=== PATIENT | female | born 1950 | race Caucasian/White ===

== ENCOUNTER 2017-07-15 12:20 | Emergency (ER) | payer MEDICARE, MEDICAID ==
[~2017-07-15] VITALS: Ht 170.2 cm; Wt 95.5 kg
[~2017-07-15 12:20] MED LIST: LEVO100T PO; SYN0.112T PO
[2017-07-15] MEDS ORDERED: normal saline 1000ML IV soln IVB ONE (12:45)
[2017-07-15] MEDS ORDERED: ipratropium/albuterol 3ml nebule NEB ONE (12:45)
[2017-07-15] MEDS ORDERED: methylPREDNISolone sod succ 125mg/2ml vial IV ONE (12:45)
[2017-07-15 13:01] LABS: BASOPHILS % (AUTO) 0.3 % (0-1); EOSINOPHILS # (AUTO) 0.1 X10'3 (0-0.9); HEMATOCRIT 25.2 % (35.0-45.0); HEMOGLOBIN 8.5 g/dl (12.0-16.0); LYMPHOCYTES # (AUTO) 0.9 X10'3 (1.1-4.8); LYMPHOCYTES % (AUTO) 16.6 % (21-51); MEAN CORPUSCULAR HEMOGLOBIN 29.4 PG (27.0-31.0); MEAN CORPUSCULAR HGB CONC 33.8 % (33.0-36.5); MEAN CORPUSCULAR VOLUME 86.8 FL (78-98); MONOCYTES # (AUTO) 0.4 X10'3 (0-0.9); MONOCYTES % (AUTO) 7.8 % (2-12); NEUTROPHILS # (AUTO) 3.8 X10'3 (1.8-7.7); NEUTROPHILS % (AUTO) 73.3 % (42-75); PLATELET COUNT 234 X10'3 (140-440); RED CELL DISTRIBUTION WIDTH 13.5 % (11.5-14.5); WHITE BLOOD COUNT 5.2 X10'3 (4.5-11.0)
[2017-07-15 13:10] VITALS: BP 141/105
[2017-07-15 13:38] LABS: ALANINE AMINOTRANSFERASE 25 U/L (12-78); ALBUMIN 2.9 G/DL (3.4-5.0); ALBUMIN/GLOBULIN RATIO 0.8 (1.1-1.5); ALKALINE PHOSPHATASE 103 IU/L (46-116); ANION GAP 8 (8-16); ASPARTATE AMINO TRANSFERASE 16 U/L (10-37); BILIRUBIN,TOTAL 0.4 MG/DL (0.1-1.0); BLOOD UREA NITROGEN 16 MG/DL (7-18); BUN/CREATININE RATIO 25.4 (6.6-38.0); CHLORIDE 110 MMOL/L (99-107); CREATININE 0.63 MG/DL (0.40-0.90); GLUCOSE 94 MG/DL (70-104); POTASSIUM 3.7 MMOL/L (3.5-5.1); SODIUM 142 MMOL/L (135-145); TOTAL CARBON DIOXIDE 24.5 MMOL/L (24-32); TOTAL PROTEIN 6.4 G/DL (6.4-8.2); eGFR > 90 ML/MIN
[2017-07-15] MEDS ORDERED: LEVO500T89 PO (13:49)
[2017-07-15] MEDS ORDERED: PRED20TA PO (13:49)
[2017-07-15] MEDS ORDERED: ALBU6.7H INH (13:49)
== END 2017-07-15 14:13 | disposition home or self-care (01) ==
LOC: ER 12:20
DX: J21.9 Acute bronchiolitis, unspecified (principal); J45.901 Unspecified asthma with (acute) exacerbation; F41.9 Anxiety disorder, unspecified; R62.50 Unspecified lack of expected normal physiological development in childhood; Z88.0 Allergy status to penicillin; Z88.1 Allergy status to other antibiotic agents; Z88.2 Allergy status to sulfonamides; Z88.8 Allergy status to other drugs, medicaments and biological substances; Z79.899 Other long term (current) drug therapy
CPT/HCPCS: 36415; 71045; 80053; 85025; 93005; 94640; 94760; 96374; 99285; J2930; J7030; 96361

== ENCOUNTER 2022-06-19 14:08 | Inpatient (IN) | payer MEDICARE, MEDICAID ==
[~2022-06-19] VITALS: Ht 175.3 cm; Wt 100.3 kg
[~2022-06-19 14:08] MED LIST changes: +ALBU6.7H14 INH
[2022-06-19 14:48] LABS: HEMOGLOBIN 12.1 g/dl (12.0-16.0); LYMPHOCYTES # (AUTO) 0.9 X10'3 (1.1-4.8); MONOCYTES # (AUTO) 0.7 X10'3 (0-0.9); NEUTROPHILS # (AUTO) 7.5 X10'3 (1.8-7.7); WHITE BLOOD COUNT 9.2 X10'3 (4.5-11.0)
[2022-06-19 14:50] LABS: BASOPHILS % (AUTO) 0.5 % (0-1); EOSINOPHILS % (AUTO) 0.2 % (0-6); HEMATOCRIT 36.6 % (35.0-45.0); LYMPHOCYTES % (AUTO) 10.3 % (21-51); MEAN CORPUSCULAR HEMOGLOBIN 30.2 PG (27.0-31.0); MEAN CORPUSCULAR HGB CONC 33.1 g/dL (33.0-36.5); MEAN CORPUSCULAR VOLUME 91.3 FL (78-98); MEAN PLATELET VOLUME 8.3 FL (7.4-10.4); MONOCYTES % (AUTO) 7.8 % (2-12); NEUTROPHILS % (AUTO) 81.2 % (42-75); PLATELET COUNT 237 X10'3 (140-440); RED BLOOD COUNT 4.01 X10'6 (4.20-5.60)
[2022-06-19 15:04] LABS: ALANINE AMINOTRANSFERASE 93 U/L (12-78); ALBUMIN 3.4 G/DL (3.4-5.0); ALKALINE PHOSPHATASE 136 IU/L (46-116); ANION GAP 9 (8-16); ASPARTATE AMINO TRANSFERASE 45 U/L (10-37); BILIRUBIN,TOTAL 1.2 MG/DL (0.1-1.0); BLOOD UREA NITROGEN 23 MG/DL (7-18); BUN/CREATININE RATIO 21.3 (10.0-20.0); CALCIUM 9.2 MG/DL (8.5-10.1); CHLORIDE 105 MMOL/L (99-107); CREATININE 1.08 MG/DL (0.40-0.90); GLUCOSE 193 MG/DL (70-104); POTASSIUM 4.4 MMOL/L (3.5-5.1); SODIUM 138 MMOL/L (135-145); TOTAL CARBON DIOXIDE 24.2 MMOL/L (24-32); TOTAL PROTEIN 6.8 G/DL (6.4-8.2); eGFR 50 ML/MIN
[2022-06-19 15:12] LABS: MAGNESIUM 2.3 MG/DL (1.5-2.4)
[2022-06-19] MEDS ORDERED: potassium Cl 20 mEq SR tablet PO PRN ×2 (16:55)
[2022-06-19] MEDS ORDERED: potassium Cl 40MEQ/1/2NS 520ml 520 ML IV PRN (16:55)
[2022-06-19] MEDS ORDERED: magnesium hydroxide 30ml (MOM) UD suspension PO PRN (16:55)
[2022-06-19] MEDS ORDERED: diphenhydrAMINE 25mg capsule PO PRN (16:55)
[2022-06-19] MEDS ORDERED: magnesium Cl slow-release 64mg tablet PO PRN (16:55)
[2022-06-19] MEDS ORDERED: morphine 2 MG/ML inj. syringe IV PRN (16:55)
[2022-06-19] MEDS ORDERED: ondansetron/PF 4mg/2ml inj IV PRN (16:55)
[2022-06-19] MEDS ORDERED: magnesium 4gm in 100ml NS 100 ML IV PRN (16:55)
[2022-06-19] MEDS ORDERED: hydrALAZINE 20mg/ml inj. IV PRN (17:15)
[2022-06-19] MEDS ORDERED: LEVO100T PO (17:47)
[2022-06-19] MEDS ORDERED: OFLO5DRO6 EACHEYE (17:47)
[2022-06-19] MEDS ORDERED: TETR-59 PO (17:48)
[2022-06-19] MEDS ORDERED: TETR15DR26 OP (17:49)
[2022-06-19] MEDS: K and/or MAG REPLACEMENT MC SCH (20:00)
[2022-06-19] MEDS ORDERED: enoxaparin 40mg/0.4ml syringe SQ SCH (20:00)
[2022-06-19] MEDS: docusate sod 100mg capsule PO SCH (20:43)
[2022-06-19] MEDS: HYDROcodone/acetaminophen 5mg/325mg tablet PO PRN (22:27)
--- NOTE | 2022-06-20 01:56 | NUR ---
PT. PLACED ON HOSPITAL BED FOR COMFORT. STATED RELIEF OF EPIGASTRIC PAIN AFTER BEING MEDICATED ORDERED WITH NORCO.
[2022-06-20 07:25] LABS: BASOPHILS # (AUTO) 0.1 X10'3 (0-0.2); BASOPHILS % (AUTO) 0.8 % (0-1); EOSINOPHILS # (AUTO) 0.1 X10'3 (0-0.9); EOSINOPHILS % (AUTO) 1.9 % (0-6); HEMATOCRIT 35.2 % (35.0-45.0); HEMOGLOBIN 11.6 g/dl (12.0-16.0); LYMPHOCYTES # (AUTO) 1.3 X10'3 (1.1-4.8); LYMPHOCYTES % (AUTO) 16.9 % (21-51); MEAN CORPUSCULAR HEMOGLOBIN 30.4 PG (27.0-31.0); MEAN CORPUSCULAR HGB CONC 32.9 g/dL (33.0-36.5); MEAN CORPUSCULAR VOLUME 92.3 FL (78-98); MEAN PLATELET VOLUME 8.5 FL (7.4-10.4); MONOCYTES # (AUTO) 0.6 X10'3 (0-0.9); MONOCYTES % (AUTO) 7.8 % (2-12); NEUTROPHILS # (AUTO) 5.6 X10'3 (1.8-7.7); NEUTROPHILS % (AUTO) 72.6 % (42-75); PLATELET COUNT 232 X10'3 (140-440); RED BLOOD COUNT 3.81 X10'6 (4.20-5.60); RED CELL DISTRIBUTION WIDTH 14.7 % (11.5-14.5); WHITE BLOOD COUNT 7.7 X10'3 (4.5-11.0)
[2022-06-20] MEDS: pantoprazole 40mg Tablet.DR PO SCH (07:30)
[2022-06-20 07:41] LABS: ALANINE AMINOTRANSFERASE 72 U/L (12-78); ALBUMIN 3.1 G/DL (3.4-5.0); ALBUMIN/GLOBULIN RATIO 0.9 (1.1-1.5); ALKALINE PHOSPHATASE 131 IU/L (46-116); ANION GAP 10 (8-16); ASPARTATE AMINO TRANSFERASE 37 U/L (10-37); BILIRUBIN,TOTAL 1.2 MG/DL (0.1-1.0); BLOOD UREA NITROGEN 28 MG/DL (7-18); BUN/CREATININE RATIO 24.1 (10.0-20.0); CALCIUM 9.1 MG/DL (8.5-10.1); CHLORIDE 108 MMOL/L (99-107); CREATININE 1.16 MG/DL (0.40-0.90); GLUCOSE 149 MG/DL (70-104); MAGNESIUM 2.3 MG/DL (1.5-2.4); SODIUM 140 MMOL/L (135-145); TOTAL CARBON DIOXIDE 22.3 MMOL/L (24-32); TOTAL PROTEIN 6.4 G/DL (6.4-8.2); eGFR 46 ML/MIN
[2022-06-20 07:45] LABS: POTASSIUM 4.5 MMOL/L (3.5-5.1)
[2022-06-20] MEDS: docusate sod 100mg capsule PO SCH ×2 (08:00→19:57)
[2022-06-20] MEDS: K and/or MAG REPLACEMENT MC SCH ×2 (08:00→19:57)
[2022-06-20] MEDS ORDERED: enoxaparin 40mg/0.4ml syringe SUBCUT SCH (08:00)
[2022-06-20 10:00] VITALS: BP 148/49
--- NOTE | 2022-06-20 10:00 | NUR ---
Patient in room PCU 3014. I have received report from Ted [facility]Z ED Dept and had the opportunity to ask questions and assume patient care. Pt alert and oriented x 4, breathing even and unlabored on room air. Denies chest pain. Reports weakness with walking with cane since about the June 07 with dizziness. Addendum: 06/20/22 at 1027 by Ian Babcock LVN Amended: Links added.
[2022-06-20 11:00] VITALS: BP 145/52
--- NOTE | 2022-06-20 12:18 | NUR ---
Paged. Page Sent promotional table spacer PAGER ID: [phone] MESSAGE: [id number]- [place]. Pt changed mind and would like to proceed with pacemaker procedure. Ian Babcock LVN
--- NOTE | 2022-06-20 12:21 | NUR ---
Jessica Urban. [id number]- [place]. Pt changed mind and would like to proceed with pacemaker procedure. Xenia notified. Dr. Bliss met with pt and initially refused procedure. Ian Babcock LVN
--- NOTE | 2022-06-20 14:40 | NUR ---
2 Blankets 1 sheet Addendum: 06/20/22 at 1456 by Ian Babcock LVN Amended: Links added.
--- NOTE | 2022-06-20 17:24 | NUR ---
BOTTLER HELPER documentation: I have reviewed and agree with all interventions, assessments performed and documented by MARK CORONADO LVN.
[2022-06-20 18:00] VITALS: BP 167/69
--- NOTE | 2022-06-20 18:05 | NUR ---
Patient in room PCU 3014. I have received report from Ian KHOURY and had the opportunity to ask questions and assume patient care.
--- NOTE | 2022-06-20 18:58 | NUR ---
Problems reprioritized. Patient report given, questions answered & plan of care reviewed with Lilian KHOURY. Addendum: 06/20/22 at 1859 by Ian Babcock LVN Amended: Links added.
[2022-06-20] MEDS: apixaban 5mg tablet PO SCH (20:00)
[2022-06-20] MEDS: mag hydrox/Alum hydrox/simeth 30ml oral suspension PO PRN (21:55)
--- NOTE | 2022-06-20 21:55 | NUR ---
pt c/o epigastric pain after drinking milk and said it was from her ulcer. offered pt Maalox, tylenol, or norco per EMar. pt eventually agreed to take Maalox.
[2022-06-20 22:00] VITALS: BP 164/47
--- NOTE | 2022-06-20 23:30 | NUR ---
pt still c/o epicgastric pain and has been very verbally disruptive in her room. charge nurse offered tylenol or norco. also offered to call doctor to see if we could give protonix which was non-admined earlier in the day. pt refused everything and requested we "get out" of her room.
--- NOTE | 2022-06-20 23:56 | NUR ---
pt was loudly moaning, went in to again offer pain medication or to call the doctor about protonix. pt said to "get out of my room". i reminded the pt that we are trying to help and that she is being loud and she has a neighbor who also does not feel well and is trying to sleep. pt again told me to get out and then wouldnt say anymore. charge nurse went in and pt then asked for one tylenol.
[2022-06-21] VITALS (19 sets, daily range): BP systolic 128–208; BP diastolic 48–90
--- NOTE | 2022-06-21 06:19 | NUR ---
Problems reprioritized. Patient report given, questions answered & plan of care reviewed with Ian KHOURY.
--- NOTE | 2022-06-21 06:30 | NUR ---
Patient in room PCU 3014. I have received report from Lilian KHOURY and had the opportunity to ask questions and assume patient care. Pt sleeping right side lying, eyes closed, breathing even and unlabored on room air. Call light within reach. Bed in Lowest position.
[2022-06-21] MEDS: pantoprazole 40mg Tablet.DR PO SCH (06:43)
--- NOTE | 2022-06-21 07:05 | NUR ---
Paged. Page Sent PAGER ID: [phone] MESSAGE: [phone]- [place]. Jessica Michaels. Can you please review med rec. Pt has AM sythroid due. Thanks. Ian Babcock LVN
[2022-06-21] MEDS: docusate sod 100mg capsule PO SCH ×2 (08:00→19:55)
[2022-06-21] MEDS: K and/or MAG REPLACEMENT MC SCH ×2 (08:00→19:58)
[2022-06-21] MEDS: apixaban 5mg tablet PO SCH (08:00)
[2022-06-21 08:17] LABS: BASOPHILS # (AUTO) 0.1 X10'3 (0-0.2); BASOPHILS % (AUTO) 0.7 % (0-1); EOSINOPHILS # (AUTO) 0.2 X10'3 (0-0.9); EOSINOPHILS % (AUTO) 2.6 % (0-6); HEMATOCRIT 34.5 % (35.0-45.0); HEMOGLOBIN 11.3 g/dl (12.0-16.0); LYMPHOCYTES # (AUTO) 1.3 X10'3 (1.1-4.8); LYMPHOCYTES % (AUTO) 16.1 % (21-51); MEAN CORPUSCULAR HEMOGLOBIN 30.2 PG (27.0-31.0); MEAN CORPUSCULAR HGB CONC 32.8 g/dL (33.0-36.5); MEAN CORPUSCULAR VOLUME 92.1 FL (78-98); MEAN PLATELET VOLUME 8.7 FL (7.4-10.4); MONOCYTES # (AUTO) 0.6 X10'3 (0-0.9); MONOCYTES % (AUTO) 7.3 % (2-12); NEUTROPHILS % (AUTO) 73.3 % (42-75); PLATELET COUNT 231 X10'3 (140-440); RED BLOOD COUNT 3.75 X10'6 (4.20-5.60); RED CELL DISTRIBUTION WIDTH 14.1 % (11.5-14.5); WHITE BLOOD COUNT 8.2 X10'3 (4.5-11.0)
[2022-06-21 08:32] LABS: ALANINE AMINOTRANSFERASE 73 U/L (12-78); ALKALINE PHOSPHATASE 136 IU/L (46-116); ANION GAP 10 (8-16); ASPARTATE AMINO TRANSFERASE 39 U/L (10-37); BLOOD UREA NITROGEN 30 MG/DL (7-18); BUN/CREATININE RATIO 28.8 (10.0-20.0); CALCIUM 8.7 MG/DL (8.5-10.1); CHLORIDE 107 MMOL/L (99-107); CREATININE 1.04 MG/DL (0.40-0.90); GLUCOSE 126 MG/DL (70-104); MAGNESIUM 2.3 MG/DL (1.5-2.4); SODIUM 140 MMOL/L (135-145); TOTAL CARBON DIOXIDE 23.2 MMOL/L (24-32); TOTAL PROTEIN 6.1 G/DL (6.4-8.2); eGFR 52 ML/MIN
[2022-06-21] MEDS ORDERED: SYNTHROID 100 MCG PO ONE ×2 (09:20→09:30)
[2022-06-21] MEDS ORDERED: glycopyrrolate 0.2mg/ml inj IV ONE (13:00)
[2022-06-21] MEDS ORDERED: MIDAZolam 1mg/ml 10ml vial IV ONE (13:15)
[2022-06-21] MEDS ORDERED: fentaNYL/PF 50MCG/1 ML 2ML syringe IV ONE (13:15)
--- NOTE | 2022-06-21 15:03 | NUR ---
RT Paged [phone]- Cardioversion procedure occuring at 1500. Please come to bedside. Ian Babcock LVN
--- NOTE | 2022-06-21 15:05 | NUR ---
RT paged [phone]- Dr. Villagomez at bedside. Please come for cardioversion procedure. Ian Babcock LVN
[2022-06-21] MEDS: amiodarone 200mg tablet PO SCH (15:25)
[2022-06-21] MEDS ORDERED: amiodarone 150mg/dext, iso-os 100 ML IV ONE ×2 (15:25)
--- NOTE | 2022-06-21 18:15 | NUR ---
Patient in room PCU 3014. I have received report from Ian KHOURY and had the opportunity to ask questions and assume patient care.
--- NOTE | 2022-06-21 18:26 | NUR ---
Pt had a Cardioversion today. Please see MD notes. Pt will have pacemaker procedure 06/22/22. Problems reprioritized. Patient report given, questions answered & plan of care reviewed with Lilian KHOURY.
[2022-06-21] MEDS: enoxaparin 100mg/ml syringe SUBCUT SCH (19:57)
--- NOTE | 2022-06-21 20:00 | NUR ---
did non admin for lovenox at 1999 since pt is going into surgery next day for pacemaker placement
[2022-06-21] MEDS: PEG EACHEYE SCH (21:00)
[2022-06-21] MEDS: PVP EACHEYE SCH (21:00)
[2022-06-21] MEDS: DEXT EACHEYE SCH (21:00)
[2022-06-21] MEDS: TETRAHYDRZ EACHEYE SCH (21:00)
[2022-06-21] MEDS: mag hydrox/Alum hydrox/simeth 30ml oral suspension PO PRN (23:08)
[2022-06-21] MEDS: acetaminophen 325mg tablet PO PRN ×2 (23:25)
[2022-06-22] VITALS (9 sets, daily range): BP systolic 149–182; BP diastolic 45–82
[2022-06-22 06:37] LABS: BASOPHILS % (AUTO) 0.5 % (0-1); EOSINOPHILS # (AUTO) 0.2 X10'3 (0-0.9); EOSINOPHILS % (AUTO) 1.9 % (0-6); HEMATOCRIT 34.5 % (35.0-45.0); HEMOGLOBIN 11.5 g/dl (12.0-16.0); LYMPHOCYTES # (AUTO) 1.2 X10'3 (1.1-4.8); LYMPHOCYTES % (AUTO) 14.3 % (21-51); MEAN CORPUSCULAR HEMOGLOBIN 30.6 PG (27.0-31.0); MEAN CORPUSCULAR HGB CONC 33.5 g/dL (33.0-36.5); MEAN CORPUSCULAR VOLUME 91.3 FL (78-98); MEAN PLATELET VOLUME 8.7 FL (7.4-10.4); MONOCYTES # (AUTO) 0.6 X10'3 (0-0.9); MONOCYTES % (AUTO) 7.2 % (2-12); NEUTROPHILS # (AUTO) 6.6 X10'3 (1.8-7.7); NEUTROPHILS % (AUTO) 76.1 % (42-75); PLATELET COUNT 244 X10'3 (140-440); RED BLOOD COUNT 3.78 X10'6 (4.20-5.60); RED CELL DISTRIBUTION WIDTH 14.2 % (11.5-14.5); WHITE BLOOD COUNT 8.6 X10'3 (4.5-11.0)
--- NOTE | 2022-06-22 06:41 | NUR ---
Patient in room PCU 3015. I have received report from Lilian KHOURY and had the opportunity to ask questions and assume patient care. Pt found sleeping in chair in hallway, no distress noted, in sight of nursing station.
[2022-06-22] MEDS ORDERED: vancomycin/NS 1 GM ADD-VANTAGE 250 ML IV ONE (07:00)
[2022-06-22 07:05] LABS: ALANINE AMINOTRANSFERASE 71 U/L (12-78); ALBUMIN 3.2 G/DL (3.4-5.0); ALBUMIN/GLOBULIN RATIO 0.9 (1.1-1.5); ANION GAP 9 (8-16); ASPARTATE AMINO TRANSFERASE 40 U/L (10-37); BLOOD UREA NITROGEN 31 MG/DL (7-18); BUN/CREATININE RATIO 26.7 (10.0-20.0); CALCIUM 9.2 MG/DL (8.5-10.1); CHLORIDE 105 MMOL/L (99-107); CREATININE 1.16 MG/DL (0.40-0.90); GLUCOSE 123 MG/DL (70-104); MAGNESIUM 2.4 MG/DL (1.5-2.4); POTASSIUM 4.2 MMOL/L (3.5-5.1); SODIUM 138 MMOL/L (135-145); TOTAL CARBON DIOXIDE 23.8 MMOL/L (24-32); TOTAL PROTEIN 6.6 G/DL (6.4-8.2); eGFR 46 ML/MIN
[2022-06-22 07:26] LABS: ALKALINE PHOSPHATASE 141 IU/L (46-116)
[2022-06-22] MEDS: amiodarone 200mg tablet PO SCH ×2 (07:41→20:01)
[2022-06-22] MEDS: docusate sod 100mg capsule PO SCH ×2 (07:48→20:00)
[2022-06-22] MEDS: SYNTHROID 100 MCG PO SCH (07:49)
[2022-06-22] MEDS: pantoprazole 40mg Tablet.DR PO SCH (07:51)
[2022-06-22] MEDS: K and/or MAG REPLACEMENT MC SCH ×2 (07:52→20:00)
[2022-06-22] MEDS: enoxaparin 100mg/ml syringe SUBCUT SCH ×2 (08:00→20:00)
[2022-06-22] MEDS ORDERED: midazolam 1 mg/ML 2ml injection ONE (08:04)
[2022-06-22] MEDS ORDERED: fentaNYL/PF 50MCG/1 ML 2ML syringe ONE (08:04)
[2022-06-22] MEDS ORDERED: LIDOCAINE 2%/EPI 1:100,000 inj. Multi-dose 20 ML VIAL ONE (08:04)
[2022-06-22] MEDS ORDERED: vancomycin 1,000mg inj ONE (08:04)
--- NOTE | 2022-06-22 08:35 | NUR ---
Pt left for Pacemaker procedure
[2022-06-22] MEDS ORDERED: cefazolin 2gm/D5W 100mL 100 ML IV ONE (09:00)
--- NOTE | 2022-06-22 10:05 | NUR ---
Pt arrived from procedure, awake, responsive to verbal stimuli, breathing even and unlabored, SPO2 dropped to 91%, O2 placed on patient via nasal cannula @ 2LPM to keep O2 saturation above 93%. Pt has left arm in sling, Surgical site C/D/I. Alba wick in place. Pt denies pain or distress. Pt oriented x 4.
--- NOTE | 2022-06-22 11:06 | NUR ---
Paged. Page Sent PAGER ID: [phone] MESSAGE: [id number]- [place]. Pt returned from Pacemaker Procedure. Pt awake, denies pain. Left arm in sling. Per Dr. Villagomez, pt cleared for discharge after 1300hr with your consent. Ian Babcock LVN
--- NOTE | 2022-06-22 12:51 | NUR ---
paged Page Sent PAGER ID: [phone] MESSAGE: [id number] Familia patient BP 182/79 HR 71, hydralazine administered at 1119. initially effective, but not maintained SBP under 160. Jazzy Joe Student Nurse
[2022-06-22] MEDS ORDERED: cloNIDine 0.1 mg tablet PO PRN (13:00)
--- NOTE | 2022-06-22 15:21 | NUR ---
Student documentation: I have reviewed and agree with all interventions, assessments performed and documented by Chanel Student Nurse.
[2022-06-22] MEDS: mag hydrox/Alum hydrox/simeth 30ml oral suspension PO PRN ×2 (17:16→22:50)
--- NOTE | 2022-06-22 17:36 | NUR ---
paged PAGER ID: [phone] MESSAGE: [id number] [place], patient anxious AEB patient is agitated, irritable, spontaneous crying, therapeutic communication is somewhat effective. requesting antianxiety PRN. Patient is agreeable. Jazzy Joe Student Nurse.
--- NOTE | 2022-06-22 19:00 | NUR ---
Patient in room PCU 3015. I have received report from Bobby KHOURY and had the opportunity to ask questions and assume patient care. Pt is sitting high fowlers in bed , and is resting comfortably. Pt is on RA, no s/s of distress. Pt declines c/o pain at this time. Pts L arm is in sling. Sling assessed, no c/o pain with device. BLL, call light within reach, frequent rounding, overedge sewer socks on. Will continue to monitor.
--- NOTE | 2022-06-22 19:23 | NUR ---
Problems reprioritized. Patient report given, questions answered & plan of care reviewed with Edyta AVILEZ.
[2022-06-22] MEDS: DEXT EACHEYE SCH (20:05)
[2022-06-22] MEDS: TETRAHYDRZ EACHEYE SCH (20:05)
[2022-06-22] MEDS: PVP EACHEYE SCH (20:05)
[2022-06-22] MEDS: PEG EACHEYE SCH (20:05)
[2022-06-22] MEDS: HYDROcodone/acetaminophen 5mg/325mg tablet PO PRN (23:31)
[2022-06-23 01:23] VITALS: BP 166/65
--- NOTE | 2022-06-23 04:22 | NUR ---
Problems reprioritized. Patient report given, questions answered & plan of care reviewed with Mago CORONA
[2022-06-23 06:31] LABS: BASOPHILS % (AUTO) 0.4 % (0-1); EOSINOPHILS # (AUTO) 0.2 X10'3 (0-0.9); EOSINOPHILS % (AUTO) 2.3 % (0-6); HEMATOCRIT 34.2 % (35.0-45.0); HEMOGLOBIN 11.5 g/dl (12.0-16.0); LYMPHOCYTES # (AUTO) 0.9 X10'3 (1.1-4.8); LYMPHOCYTES % (AUTO) 10.9 % (21-51); MEAN CORPUSCULAR HEMOGLOBIN 30.9 PG (27.0-31.0); MEAN CORPUSCULAR HGB CONC 33.8 g/dL (33.0-36.5); MEAN CORPUSCULAR VOLUME 91.4 FL (78-98); MEAN PLATELET VOLUME 7.9 FL (7.4-10.4); MONOCYTES # (AUTO) 0.5 X10'3 (0-0.9); MONOCYTES % (AUTO) 5.8 % (2-12); NEUTROPHILS # (AUTO) 6.8 X10'3 (1.8-7.7); NEUTROPHILS % (AUTO) 80.6 % (42-75); PLATELET COUNT 247 X10'3 (140-440); RED BLOOD COUNT 3.74 X10'6 (4.20-5.60); RED CELL DISTRIBUTION WIDTH 14.1 % (11.5-14.5); WHITE BLOOD COUNT 8.5 X10'3 (4.5-11.0)
[2022-06-23 06:39] LABS: ALANINE AMINOTRANSFERASE 61 U/L (12-78); ALBUMIN 3.1 G/DL (3.4-5.0); ALBUMIN/GLOBULIN RATIO 0.9 (1.1-1.5); ALKALINE PHOSPHATASE 146 IU/L (46-116); ANION GAP 7 (8-16); ASPARTATE AMINO TRANSFERASE 32 U/L (10-37); BILIRUBIN,TOTAL 1.4 MG/DL (0.1-1.0); BLOOD UREA NITROGEN 23 MG/DL (7-18); BUN/CREATININE RATIO 25.8 (10.0-20.0); CALCIUM 8.8 MG/DL (8.5-10.1); CHLORIDE 105 MMOL/L (99-107); CREATININE 0.89 MG/DL (0.40-0.90); GLUCOSE 116 MG/DL (70-104); MAGNESIUM 2.3 MG/DL (1.5-2.4); POTASSIUM 4.1 MMOL/L (3.5-5.1); SODIUM 138 MMOL/L (135-145); TOTAL CARBON DIOXIDE 25.8 MMOL/L (24-32); TOTAL PROTEIN 6.4 G/DL (6.4-8.2); eGFR 62 ML/MIN
[2022-06-23] MEDS: mag hydrox/Alum hydrox/simeth 30ml oral suspension PO PRN (06:46)
[2022-06-23] MEDS: SYNTHROID 100 MCG PO SCH (06:47)
[2022-06-23] MEDS: amiodarone 200mg tablet PO SCH ×2 (06:47→21:49)
[2022-06-23] MEDS: pantoprazole 40mg Tablet.DR PO SCH (06:47)
[2022-06-23] MEDS: HYDROcodone/acetaminophen 5mg/325mg tablet PO PRN ×2 (06:49→21:50)
[2022-06-23 07:00] VITALS: BP 150/60
[2022-06-23] MEDS: enoxaparin 100mg/ml syringe SUBCUT SCH (08:00)
[2022-06-23] MEDS: K and/or MAG REPLACEMENT MC SCH ×2 (08:00→20:00)
[2022-06-23] MEDS: docusate sod 100mg capsule PO SCH ×3 (08:50→21:50)
[2022-06-23 11:00] VITALS: BP 142/58
[2022-06-23] MEDS: amLODIPine 5mg tablet PO SCH (11:05)
[2022-06-23] MEDS ORDERED: hydrALAZINE 20mg/ml inj. IV PRN (11:10)
[2022-06-23 15:00] VITALS: BP 138/62
[2022-06-23] MEDS ORDERED: ondansetron 4mg rapidly disintigrating tab PO PRN (16:00)
--- NOTE | 2022-06-23 17:08 | NUR ---
AGREE WITH SHEET [employer] SMITH AM ASSESSMENT EXCEPT WHERE CHANGES MADE.
[2022-06-23 19:00] VITALS: BP 172/59
[2022-06-23] MEDS: apixaban 5mg tablet PO SCH ×2 (20:00→21:50)
[2022-06-23 23:00] VITALS: BP 126/69
--- NOTE | 2022-06-24 06:30 | NUR ---
Patient in room PCU 3015. I have received report from Burton AVILEZ and had the opportunity to ask questions and assume patient care.
[2022-06-24 07:00] VITALS: BP 172/68
[2022-06-24 07:22] LABS: BASOPHILS % (AUTO) 0.6 % (0-1); EOSINOPHILS # (AUTO) 0.2 X10'3 (0-0.9); EOSINOPHILS % (AUTO) 2.3 % (0-6); HEMATOCRIT 35.3 % (35.0-45.0); HEMOGLOBIN 11.8 g/dl (12.0-16.0); LYMPHOCYTES # (AUTO) 0.7 X10'3 (1.1-4.8); LYMPHOCYTES % (AUTO) 9.6 % (21-51); MEAN CORPUSCULAR HEMOGLOBIN 30.4 PG (27.0-31.0); MEAN CORPUSCULAR HGB CONC 33.4 g/dL (33.0-36.5); MEAN CORPUSCULAR VOLUME 91.1 FL (78-98); MEAN PLATELET VOLUME 7.6 FL (7.4-10.4); MONOCYTES # (AUTO) 0.4 X10'3 (0-0.9); MONOCYTES % (AUTO) 5.9 % (2-12); NEUTROPHILS % (AUTO) 81.6 % (42-75); PLATELET COUNT 262 X10'3 (140-440); RED BLOOD COUNT 3.87 X10'6 (4.20-5.60); RED CELL DISTRIBUTION WIDTH 14.3 % (11.5-14.5); WHITE BLOOD COUNT 7.4 X10'3 (4.5-11.0)
[2022-06-24] MEDS: pantoprazole 40mg Tablet.DR PO SCH (07:30)
[2022-06-24 07:54] LABS: ALANINE AMINOTRANSFERASE 44 U/L (12-78); ALBUMIN 2.9 G/DL (3.4-5.0); ALBUMIN/GLOBULIN RATIO 0.9 (1.1-1.5); ALKALINE PHOSPHATASE 133 IU/L (46-116); ANION GAP 9 (8-16); ASPARTATE AMINO TRANSFERASE 23 U/L (10-37); BILIRUBIN,TOTAL 1.3 MG/DL (0.1-1.0); BLOOD UREA NITROGEN 19 MG/DL (7-18); BUN/CREATININE RATIO 24.1 (10.0-20.0); CALCIUM 8.6 MG/DL (8.5-10.1); CHLORIDE 106 MMOL/L (99-107); CREATININE 0.79 MG/DL (0.40-0.90); GLUCOSE 117 MG/DL (70-104); POTASSIUM 3.7 MMOL/L (3.5-5.1); SODIUM 138 MMOL/L (135-145); TOTAL CARBON DIOXIDE 23.1 MMOL/L (24-32); TOTAL PROTEIN 6.3 G/DL (6.4-8.2); eGFR 71 ML/MIN
[2022-06-24] MEDS: amLODIPine 5mg tablet PO SCH (08:00)
[2022-06-24] MEDS: docusate sod 100mg capsule PO SCH (08:00)
[2022-06-24] MEDS: apixaban 5mg tablet PO SCH (08:00)
[2022-06-24] MEDS: K and/or MAG REPLACEMENT MC SCH (08:00)
[2022-06-24] MEDS: amiodarone 200mg tablet PO SCH (08:00)
--- NOTE | 2022-06-24 08:19 | NUR ---
Patient educated on the needs for scheduled Eliquis to prevent a clot r/t new pacer, amiodarone, amlodipine, protonix, Colace. Patient's response is "I only need my Thyroid medications and brown sugar." Notified patient we currently don't have a order for Levothyroxine but will speak with MD about it.
--- NOTE | 2022-06-24 09:41 | NUR ---
Notified Dr. Small patient's synthroid order cancelled. Patient stating she will leave AMA if she does not get medication. Per MD okay to restart order.
[2022-06-24 11:45] VITALS: BP 172/67
--- NOTE | 2022-06-24 11:50 | NUR ---
Report called to Isabel KHOURY [facility] nurse.
--- NOTE | 2022-06-24 12:17 | NUR ---
Patient transfered to [facility]. Left via wheelchair with [facility] personnel. IV removed Tele box removed and returned to teletype clerk. All belongings sent with patient.
== END 2022-06-24 12:10 | DRG 242 ==
LOC: ER 14:08 → ED HOLD 17:11 → EDBEDREQ 06-20 03:22 → PCU 3S 06-20 10:03
PROVIDERS: ADMIT Internal Medicine; ATTEND Internal Medicine
PROC: 5A2204Z Restoration of Cardiac Rhythm, Single (ICD-10-PCS; 2022-06-21)
PROC: 0JH606Z Insertion of Pacemaker, Dual Chamber into Chest Subcutaneous Tissue and Fascia, Open Approach (ICD-10-PCS; principal; 2022-06-22)
PROC: 02H63JZ Insertion of Pacemaker Lead into Right Atrium, Percutaneous Approach (ICD-10-PCS; 2022-06-22)
PROC: 02HK3JZ Insertion of Pacemaker Lead into Right Ventricle, Percutaneous Approach (ICD-10-PCS; 2022-06-22)
DX: I44.2 Atrioventricular block, complete (principal); N17.0 Acute kidney failure with tubular necrosis; J98.11 Atelectasis; I48.92 Unspecified atrial flutter; I48.91 Unspecified atrial fibrillation; K44.9 Diaphragmatic hernia without obstruction or gangrene; K40.90 Unilateral inguinal hernia, without obstruction or gangrene, not specified as recurrent; E03.9 Hypothyroidism, unspecified; R00.1 Bradycardia, unspecified; F41.9 Anxiety disorder, unspecified; R16.0 Hepatomegaly, not elsewhere classified; N28.1 Cyst of kidney, acquired; E78.5 Hyperlipidemia, unspecified; D64.9 Anemia, unspecified; E20.9 Hypoparathyroidism, unspecified; I36.1 Nonrheumatic tricuspid (valve) insufficiency; Z88.0 Allergy status to penicillin; Z88.2 Allergy status to sulfonamides; Z88.8 Allergy status to other drugs, medicaments and biological substances; Z91.041 Radiographic dye allergy status; Z79.899 Other long term (current) drug therapy; Z90.710 Acquired absence of both cervix and uterus; Z87.11 Personal history of peptic ulcer disease; Z90.13 Acquired absence of bilateral breasts and nipples; Z86.73 Personal history of transient ischemic attack (TIA), and cerebral infarction without residual deficits; Z88.5 Allergy status to narcotic agent; Z85.3 Personal history of malignant neoplasm of breast; Z79.01 Long term (current) use of anticoagulants
CPT/HCPCS: 33208; 36415; 71045; 74176; 80053; 83735; 83880; 84443; 84484; 85025; 87081; 93005; 93306; 93312; 99152; 99153; 99285; A4565; A4615; A4620; A6402; C1769; C1785; C1898; G0378; J0282; J0360; J1650; J2250; J3010; J3370; J3490; J7030

== ENCOUNTER 2023-03-16 13:53 | Emergency (ER) | payer MEDICARE, MEDICAID ==
[~2023-03-16] VITALS: Ht 175.3 cm; Wt 92.9 kg
[~2023-03-16 13:53] MED LIST changes: -ALBU6.7H14 INH; -SYN0.112T PO; +TETR15DR26 OP
[2023-03-16 13:58] VITALS: TEMP 98.1
[2023-03-16 14:49] LABS: BASOPHILS % (AUTO) 0.5 % (0-1); EOSINOPHILS # (AUTO) 0.1 X10'3 (0-0.9); EOSINOPHILS % (AUTO) 1.1 % (0-6); HEMATOCRIT 42.4 % (35.0-45.0); HEMOGLOBIN 14.1 g/dl (12.0-16.0); LYMPHOCYTES # (AUTO) 1.1 X10'3 (1.1-4.8); MEAN CORPUSCULAR HEMOGLOBIN 30.3 PG (27.0-31.0); MEAN CORPUSCULAR HGB CONC 33.3 g/dL (33.0-36.5); MEAN CORPUSCULAR VOLUME 91.1 FL (78-98); MEAN PLATELET VOLUME 7.8 FL (7.4-10.4); MONOCYTES # (AUTO) 0.6 X10'3 (0-0.9); MONOCYTES % (AUTO) 8.5 % (2-12); NEUTROPHILS # (AUTO) 4.8 X10'3 (1.8-7.7); NEUTROPHILS % (AUTO) 72.9 % (42-75); PLATELET COUNT 278 X10'3 (140-440); RED BLOOD COUNT 4.65 X10'6 (4.20-5.60); RED CELL DISTRIBUTION WIDTH 13.3 % (11.5-14.5); WHITE BLOOD COUNT 6.5 X10'3 (4.5-11.0)
[2023-03-16 15:07] LABS: ALANINE AMINOTRANSFERASE 37 U/L (12-78); ALBUMIN 3.7 G/DL (3.4-5.0); ALBUMIN/GLOBULIN RATIO 0.9 (1.1-1.5); ALKALINE PHOSPHATASE 129 IU/L (46-116); ANION GAP 10 (8-16); ASPARTATE AMINO TRANSFERASE 25 U/L (10-37); BILIRUBIN,TOTAL 0.6 MG/DL (0.1-1.0); BLOOD UREA NITROGEN 18 MG/DL (7-18); BUN/CREATININE RATIO 18.4 (10.0-20.0); CHLORIDE 103 MMOL/L (99-107); CREATININE 0.98 MG/DL (0.40-0.90); GLUCOSE 123 MG/DL (70-104); SODIUM 139 MMOL/L (135-145); TOTAL CARBON DIOXIDE 25.9 MMOL/L (24-32); TOTAL PROTEIN 7.6 G/DL (6.4-8.2); eCRCL 53 ML/MIN; eGFR 55 ML/MIN
[2023-03-16 15:13] LABS: PRO BRAIN NATRIURETIC PEPTIDE 647 PG/ML (0-125)
[2023-03-16] MEDS ORDERED: levoFLOXACIN 750MG TABLET PO ONE (19:50)
[2023-03-16] MEDS ORDERED: LEVO-65 PO (19:54)
[2023-03-16] MEDS ORDERED: PRED20TA PO (19:54)
[2023-03-16 20:18] VITALS: BP 164/75; PULSE 60; RESP 20; O2SAT 94
== END 2023-03-16 20:20 | disposition home or self-care (01) ==
LOC: ER 13:54
DX: J40 Bronchitis, not specified as acute or chronic (principal); J18.9 Pneumonia, unspecified organism; R06.02 Shortness of breath; R79.89 Other specified abnormal findings of blood chemistry; E03.9 Hypothyroidism, unspecified; Z90.710 Acquired absence of both cervix and uterus; Z88.0 Allergy status to penicillin; Z88.2 Allergy status to sulfonamides; Z88.1 Allergy status to other antibiotic agents; Z91.041 Radiographic dye allergy status; Z79.899 Other long term (current) drug therapy
CPT/HCPCS: 36415; 71046; 80053; 83880; 84484; 85025; 93005; 99285